=== PATIENT | male | born 1970 | race Native Hawaiian/Other Pacific Islander ===

== ENCOUNTER 2020-07-10 10:16 | Outpatient (CLI) | payer BC | END 2020-07-10 21:41 | disposition home or self-care (01) | LOC: RAD 10:16 | PROVIDERS: ATTEND Internal Medicine | DX: R63.4 Abnormal weight loss (principal); R10.11 Right upper quadrant pain; M54.41 Lumbago with sciatica, right side ==

== ENCOUNTER 2020-07-11 08:35 | Outpatient (CLI) | payer BC ==
[2020-07-11 09:11] LABS: PLATELET COUNT 259 K/uL (142-355)
[2020-07-11 09:31] LABS: POTASSIUM 4.2 mmol/L (3.6-5.2)
== END 2020-07-11 21:09 | disposition home or self-care (01) ==
LOC: LABW 08:35
PROVIDERS: ATTEND Internal Medicine
DX: E11.9 Type 2 diabetes mellitus without complications (principal); R63.4 Abnormal weight loss; Z12.5 Encounter for screening for malignant neoplasm of prostate
CPT/HCPCS: 36415; 80053; 80061; 81000; 82043; 83036; 84153; 84439; 84443; 85027; 87086; 87088

== ENCOUNTER 2020-07-17 08:49 | Outpatient (CLI) | payer BC | END 2020-07-17 19:30 | disposition home or self-care (01) | LOC: CT 08:49 | PROVIDERS: ATTEND Internal Medicine | DX: R10.11 Right upper quadrant pain (principal) | CPT/HCPCS: Q9963 ==

== ENCOUNTER 2020-08-08 09:43 | Outpatient (CLI) | payer BC | END 2020-08-08 20:07 | disposition home or self-care (01) | LOC: MRI 09:43 | PROVIDERS: ATTEND Internal Medicine | DX: R26.81 Unsteadiness on feet (principal) ==